=== PATIENT | female | born 1975 | race Caucasian/White ===

== ENCOUNTER 2016-04-05 13:17 | Emergency (ER) | payer MEDICAID ==
[~2016-04-05] VITALS: Ht 157.5 cm; Wt 71.0 kg
[~2016-04-05 13:17] MED LIST: CEPH-443 PO; GUAI-47 PO; IBUP-1542 PO
[2016-04-05 13:34] VITALS: Ht 157.5 cm; Wt 71.0 kg
--- NOTE | 2016-04-05 14:48 | ERD ---
ER Documentation Chief Complaint Date/Time DATE: 04/05/16 TIME: 14:44 Chief Complaint COUGH KAYE [employer] AND [facility] 31 WEEKS AND HAS NO COMPLICATIONS HPI The patient is a 40-year-old female who is approximately 32 weeks here for a 2 day history of headache, productive cough of yellow sputum, and nasal congestion. She states that her headache comes and goes and is associated with some sinus pressure to her facial and ethmoid sinuses. She denies fever, chills , nausea, vomiting, diarrhea, difficulty breathing, chest pain, abdominal cramping, abdominal pain, or any other symptoms. She denies any problems with her and reports that the baby has been moving and active per baseline. She does state that she has been diagnosed with gestational diabetes, which she controls with diet. She has tried Tylenol with some relief. She reports sick contacts with same symptoms. She denies international travel. She denies smoking. ROS All systems reviewed and are negative except as per history of present illness. Medications Home Meds Active Scripts Ibuprofen* (Motrin*) 600 Mg Tab, 600 MG PO Q6, #14 TAB Prov:ISABELLA RUSSELL MD 01/08/15 Guaifenesin-Dextromethorphan* (Mucinex* DM) 600-30 Mg Tabsr, 1 TAB PO Q12, #14 TAB Prov:ISABELLA RUSSELL MD 01/08/15 Cephalexin* (Keflex*) 500 Mg Capsule, 500 MG PO QID for 10 Days, CAP Prov:BILL SHUKLA PAYROLL AND BENEFITS SPECIALIST 12/05/14 Allergies Allergies: Coded Allergies: No Known Allergy (Unverified , 08/08/13) PMhx/Soc History of Surgery: No Anesthesia Reaction: No Hx Neurological Disorder: No Hx Respiratory Disorders: No Hx Cardiac Disorders: No Hx Psychiatric Problems: No Hx Miscellaneous Medical Probl: Yes (GASTRITIS) Hx Alcohol Use: No Hx Substance Use: No Hx Tobacco Use: No Physical Exam Vitals Vital Signs Date Time Temp Pulse Resp B/P Pulse Ox O2 Delivery O2 Flow Rate FiO2 04/05/16 13:34 97.4 86 18 113/57 98 Physical Exam Const: No acute distress, nontoxic appearing Vital signs: Reviewed by me, afebrile, no tachycardia Head: Atraumatic Eyes: Normal Conjunctiva, no clear purulent drainage. Jugular movements intact. ENT: Normal External Ears, Nose and Mouth. Ethmoid and facial sinus tenderness to palpation bilaterally. Ear canals clear. Tympanic membranes without erythema, bulging, or effusion. Nares patent without rhinorrhea. Throat clear and without erythema or purulence. Airway patent. Moist mucous membranes. Neck: Full range of motion..~ No meningismus. No lymphadenopathy. Resp: Clear to auscultation bilaterally. No adventitious breath sounds. Cardio: Regular rate and rhythm, no murmurs Abd: Abdomen consistent with 32 week . Normal bowel sounds Skin: No petechiae or rashes Back: No midline or flank tenderness Ext: No cyanosis, or edema Neur: Awake and alert Psych: Normal Mood and Affect Procedures/MDM Nursing Notes Reviewed Previous Medical Records requested via [facility]. EMERGENCY DEPARTMENT COURSE / MEDICAL DECISION MAKING: The patient comes to the ED secondary to headache, productive cough of yellow sputum, nasal congestion 2 days. Differential diagnosis upon initial evaluation includes but is not limited to: URI, pneumonia, meningitis, and others. Impression: Upper respiratory tract infection, likely viral Based on patient's history of present illness and physical examination the decision was made to discharge. There is no evidence of life threatening injuries or illnesses at this time. The patient is afebrile, no tachycardia, oximetry 98% on room air, blood pressure 113/57, and respirations 18. She is in no acute distress. Her symptoms have only lasted 2 days. Her physical exam was benign. She has no respiratory distress, difficulty breathing, chest pain, nausea, vomiting, diarrhea. She denies any related issues or complications. The movement has been per baseline. She has no signs of dehydration and has good oral intake. Her headache was of a gradual onset and is associated with sinus pain, and comes and goes. There was no sudden or thunderclap onset. It is not associated with photophobia, stiff neck, or other symptoms. At this time, the patient's history of present illness, vital signs, and physical exam are most consistent with upper respiratory tract infection likely of viral etiology. On re-examination, patient resting in no distress, stable vital signs, reports feeling better and safe for discharge with outpatient follow up with PMD in 1-2 days. Patient given return precautions. Patient was instructed to please call her WAREHOUSE SHIPPING CLERK and secure a recheck within the next 1-2 days. She verbalized understanding and agreed. All of her questions and concerns were addressed prior to discharge. She agrees with the plan of care. She will return for any worsening symptoms, new symptoms, changing symptoms, or concerns. Prescription Tylenol Saline nasal spray Departure Diagnosis: Primary Impression: URI with cough and congestion Condition: SOCO Bustillos, PAYROLL AND BENEFITS SPECIALIST Apr 05, 2016 14:48
== END 2016-04-05 14:53 | disposition home or self-care (01) ==
LOC: FTE 13:17 → E/R 14:53
DX: O99.513 Diseases of the respiratory system complicating pregnancy, third trimester (principal); R05 Cough; R09.81 Nasal congestion; J06.9 Acute upper respiratory infection, unspecified; Z3A.32 32 weeks gestation of pregnancy
CPT/HCPCS: 99283

== ENCOUNTER 2017-04-12 09:43 | Emergency (ER) | END 2017-04-12 10:48 | disposition home or self-care (01) ==

== ENCOUNTER 2017-05-05 02:56 | Emergency (ER) | END 2017-05-05 07:57 | disposition home or self-care (01) ==

== ENCOUNTER 2017-12-28 15:26 | Emergency (ER) | END 2017-12-28 17:06 | disposition home or self-care (01) ==

== ENCOUNTER 2017-12-30 15:01 | Emergency (ER) | END 2017-12-30 17:17 | disposition home or self-care (01) ==

== ENCOUNTER 2018-06-21 09:17 | Emergency (ER) | payer MEDICAID ==
[~2018-06-21] VITALS: Ht 157.5 cm; Wt 66.7 kg
[~2018-06-21 09:17] MED LIST changes: +BENZ-6 PO; +HC30CR25 TOP; +HYDR-4011 PO; +LORA10TA3 PO; +NASO17 NASAL
[2018-06-21 09:41] VITALS: BP 111/64; PULSE 94; RESP 20; Ht 157.5 cm; Wt 66.7 kg
[2018-06-21] MEDS ORDERED: ALBUTEROL 0.083% (NEB) 2.5 MG/3 ML AMP HHN STA (11:10)
[2018-06-21] MEDS ORDERED: DEXAMETHASONE 10 MG/ML 1 ML INJ IM ONE (11:30)
[2018-06-21] MEDS ORDERED: IPRATROPIUM (NEB) 0.5 MG/2.5 ML AMP HHN ONE (11:30)
[2018-06-21] MEDS ORDERED: PROM6.2515 PO (12:09)
[2018-06-21] MEDS ORDERED: PRED20TA PO (12:09)
[2018-06-21] MEDS ORDERED: ALBU8.5H8 INH (12:09)
--- NOTE | 2018-06-21 14:52 | ERD ---
ER Documentation Chief Complaint Chief Complaint Complains of cough and congestion x 3 days HPI 42-year-old female presenting with cough and congestion times 3 days. Patient denies fever. Patient has been taking Tylenol. Has a mild runny nose and sore throat. Denies medical problems. NKDA. Surgical history denies. Social history denies. Up-to-date on vaccinations ROS All systems reviewed and are negative except as per history of present illness. Medications Home Meds Active Scripts Promethazine Hcl* (Promethazine Hcl* Syrup) 6.25 Mg/5 Ml Syrup, 6.25 MG PO Q6H PRN for COUGH, #100 ML Prov:PREETI ADAMS PA-C 06/21/18 Prednisone* (Prednisone*) 20 Mg Tab, 40 MG PO DAILY for 4 Days, TAB Prov:PREETI ADAMS PA-C 06/21/18 Albuterol Sulfate* (Proair HFA*) 8.5 Gm Hfa.aer.ad, 2 PUFF INH Q4, #1 INHALER Prov:PREETI ADAMS PA-C 06/21/18 Hydrocortisone* Topical (Hydrocortisone* Topical) 2.5%-28.3 Gm Cream..g., 1 APPLIC TOP BID, #1 TUB Prov:MARVA JJ MD 12/28/17 Hydrocodone/Acetaminophen ([place] 5-325 Tablet) 1 Each Tablet, 1 TAB PO Q12 PRN for PAIN, #20 TAB Prov:MARVA JJ MD 12/28/17 Cephalexin* (Keflex*) 500 Mg Capsule, 500 MG PO BID for 7 Days, CAP Prov:MARVA JJ MD 12/28/17 Benzonatate* (Tessalon Perle*) 100 Mg Capsule, 100 MG PO Q8H PRN for COUGH, #30 CAP Prov:JARRETT VILLAGOMEZ PA-C 05/05/17 Ibuprofen* (Motrin*) 600 Mg Tab, 600 MG PO Q6, #30 TAB Prov:JARRETT VILLAGOMEZ PA-C 05/05/17 Mometasone Furoate* (Nasonex*) 50 Mcg/[place] - 17 Gm [place].pump, 1 SPRAY NASAL BID, #1 BOTTLE IN EACH NOSTRIL Prov:WILLIAM EM PA-C 04/12/17 Loratadine* (Loratadine*) 10 Mg Tablet, 10 MG PO DAILY, #15 TAB Prov:WILLIAM EM PA-C 04/12/17 Ibuprofen* (Motrin*) 600 Mg Tab, 600 MG PO Q6, #30 TAB Prov:WILLAIM EM PA-C 04/12/17 Ibuprofen* (Motrin*) 600 Mg Tab, 600 MG PO Q6, #14 TAB Prov:ISABELLA RUSSELL MD 01/08/15 Guaifenesin-Dextromethorphan* (Mucinex* DM) 600-30 Mg Tabsr, 1 TAB PO Q12, #14 TAB Prov:ISABELLA RUSSELL MD 01/08/15 Cephalexin* (Keflex*) 500 Mg Capsule, 500 MG PO QID for 10 Days, CAP Prov:BILL SHUKLA NP 12/05/14 Allergies Allergies: Coded Allergies: No Known Allergy (Unverified , 12/30/17) PMhx/Soc History of Surgery: No Anesthesia Reaction: No Hx Neurological Disorder: No Hx Respiratory Disorders: No Hx Cardiac Disorders: No Hx Psychiatric Problems: No Hx Miscellaneous Medical Probl: No Hx Alcohol Use: No Hx Substance Use: No Hx Tobacco Use: No Smoking Status: Never smoker FmHx Family History: No diabetes, No coronary disease, No other Physical Exam Vitals Vital Signs Date Temp Pulse Resp B/P (MAP) Pulse Ox O2 O2 Flow FiO2 Time Delivery Rate 06/21/18 75 19 96 21 11:27 06/21/18 97.5 94 20 111/64 97 09:41 (80) Physical Exam GENERAL: The patient is well-appearing, well-nourished, in no acute distress HEENT: Atraumatic. Conjunctivae are pink. Pupils equal, round, and reactive to light. There is no scleral icterus. Tympanic membranes clear bilaterally. Oropharynx clear. NECK: C-spine is soft and supple. There is no meningismus. There is no c ervical lymphadenopathy. CHEST: Clear to auscultation bilaterally. There are no rales, wheezes or rhonchi. HEART: Regular rate and rhythm. No murmurs, clicks, rubs or gallops. Results 24 hrs Current Medications Medications Dose Sig/Mitzi Start Time Status Last (Trade) Ordered Route PRN Stop Time Admin Dose Reason Admin Albuterol 5 mg ONCE STAT 06/21/18 DC 06/21/18 (Proventil HHN 11:10 11:25 0.083% (Neb)) 06/21/18 11:12 Ipratropium 0.5 mg ONCE ONCE 06/21/18 DC 06/21/18 [place] [facility] 11:30 11:25 (Atrovent 06/21/18 11:31 0.02% (Neb)) 10 mg ONCE ONCE 06/21/18 DC 06/21/18 Dexamethasone IM 11:30 11:19 (Decadron) 06/21/18 11:31 Procedures/MDM DIAGNOSTIC IMAGING REPORT Patient: MIKI FIERRO : 1975 Age: 42 Sex: F MR #: [id number] DOS: 06/21/18 1111 Ordering MD: KARLEY ADAMS PA-C Location: [facility] Room/Bed: PROCEDURE: XR Chest. CLINICAL INDICATION: chest pain TECHNIQUE: Single frontal view of the chest was obtained COMPARISON: 05/15/2017 FINDINGS: The heart and mediastinum are within normal limits. The lungs are clear. There is no pleural effusion or pneumothorax. RPTAT: AA IMPRESSION: No acute disease. ER Course: Albuterol Atrovent breathing treatment given ED. Decadron given in ED. MDM: 42-year-old female presenting with cough and congestion. I have low suspicion for pneumonia. I have low suspicion for respiratory distress or hypoxia. Patient is discharged stricter precautions and told to follow-up with primary care within 1-2 days for close evaluation. Patient is discharged with supportive medications. All questions answered at discharge Departure Diagnosis: Primary Impression: Cough Condition: Stable Patient Instructions: Cough, Chronic, Uncertain Cause, (Adult) Referrals: [facility] (PCP) Additional Instructions: FOLLOW UP WITH YOUR PRIMARY CARE PHYSICIAN TOMORROW.Return to this facility if you are not improving as expected. PREETI ADAMS PA-C Jun 21, 2018 14:52
== END 2018-06-21 12:23 | disposition home or self-care (01) ==
LOC: FTE 09:17
DX: R05 Cough (principal)
CPT/HCPCS: 71045; 94664; 96372; J1100; Z7502; Z7610